=== PATIENT | female | born 1950 | race Caucasian/White ===

== ENCOUNTER 2020-08-19 15:01 | Outpatient (REF) | payer MEDICARE, SELFPAY ==
--- NOTE | ~2020-08-19 | MM_ITS ---
EXAMINATION: MM SCREENING DIGITAL BREAST TOMOSYNTHESIS, BILATERAL CLINICAL INFORMATION: Screening. Asymptomatic. Bilateral breast reduction surgery 2004. Right stereotactic biopsy 2007 (benign breast tissue with areas of chronic inflammation, foreign body giant cell reaction, hemosiderin deposition, scar and dystrophic microcalcifications). No clip placed. The lifetime risk of breast cancer based on the Tyrer-Cuzick Model is 3%. COMPARISON: Mammography: 07/25/2019, 07/19/2018, 06/21/2017 TECHNIQUE: Digital breast tomosynthesis is performed in both the craniocaudal and mediolateral oblique views along with computer-aided detection (CAD). Synthesized 2D images are generated from the tomosynthesis. FINDINGS: The breasts are almost entirely fatty (ACR BI-RADS breast composition Category a). Background stromal and fibroglandular densities are stable. There is minor scarring and scattered superficial benign calcifications consistent with the remote reduction mammoplasty. Parenchymal pattern is similar to prior studies. There is no developing density or interval mass or architectural abnormality or abnormal calcifications. The axilla are unremarkable. MM/MM tomosynthesis screening BI IMPRESSION: No mammographic evidence of malignancy. ASSESSMENT: BI-RADS 2: Benign RECOMMENDATION: Routine annual mammography screening. This patient's information was entered into a reminder system with a target due date for their next mammogram.
== END 2020-08-19 15:02 | disposition home or self-care (01) ==
LOC: HO.MAMMO 15:01
PROVIDERS: Visit Provider Internal Medicine
DX: Z12.31 Encounter for screening mammogram for malignant neoplasm of breast (principal)
CPT/HCPCS: 77063; 77067

== ENCOUNTER 2021-01-10 09:35 | Day surgery (SDC) | payer MEDICARE, SELFPAY ==
--- NOTE | 2021-01-09 12:29 | P.CONAN_ITS ---
Documented by User: Yazmin Dutta NP 01/09/21 12:29 HPI - Anesthesia Eval Consult details Narrative: 70yo F for Colonoscopy [facility] Past Medical History Medical History Insomnia Neuropathy Osteopenia Vitamin D deficiency Surgical History Surgical History History of ankle surgery History of bladder suspension procedure History of breast mammoplasty History of section History of cholecystectomy Hx of appendectomy Hx of colonoscopy Hx of foot surgery Hx of gastric bypass Hx of tonsillectomy Status post panniculectomy Social History Social History (Updated 01/10/21 @ 11:08 by Mulu Pedroza MD) Patient Tobacco Use Status: Current everyday Tobacco user Tobacco use type: Cigarette Cigarettes Per Day: 5 Smoked in Last 30 Days: Yes Use of substances other than those prescribed or required for medical reasons: No Are you DNR?: Yes Advance Directives: No Advance Directives Information Provided: Yes Meds Allergies Allergy/AdvReac Type Severity Reaction Status Date / Time No Known Allergies Allergy Mild NOT Verified 01/10/21 10:27 APPLICABLE Home Medications Medication Instructions Recorded Confirmed Last Taken Type Centrum 01/09/21 01/09/21 Unknown History Vitamin D3 01/09/21 Unknown History duloxetine 60 mg capsule,delayed 1 cap PO DAILY 01/09/21 01/09/21 Unknown History release ibuprofen 800 mg tablet 1 tab PO TID 01/09/21 01/09/21 Unknown History vit C,E,zinc,copper-mcunl5a 250 cap PO 01/09/21 Unknown History mg-lutein 5 mg-zeaxanthin 1 mg capsule (Ocuvite Adult 50 Plus) Exam Exam Date and Time: January 09, 2021 122 Assessment and Plan Assessment Anesthesia Assessment: Chart Reviewed Documented by User: Mulu Pedroza MD 01/10/21 11:11 [facility] Past Medical History Medical History Insomnia Neuropathy Osteopenia Vitamin D deficiency Family History Family history of problems with anesthesia: No Surgical History Surgical History History of ankle surgery History of bladder suspension procedure History of breast mammoplasty History of section History of cholecystectomy Hx of appendectomy Hx of colonoscopy Hx of foot surgery Hx of gastric bypass Hx of tonsillectomy Status post panniculectomy History of Problems with Anesthesia: No Social History Social History (Updated 01/10/21 @ 11:08 by Mulu Pedroza MD) Patient Tobacco Use Status: Current everyday Tobacco user Tobacco use type: Cigarette Cigarettes Per Day: 5 Smoked in Last 30 Days: Yes Use of substances other than those prescribed or required for medical reasons: No Are you DNR?: Yes Advance Directives: No Advance Directives Information Provided: Yes Meds Allergies Allergy/AdvReac Type Severity Reaction Status Date / Time No Known Allergies Allergy Mild NOT Verified 01/10/21 10:27 APPLICABLE Home Medications Medication Instructions Recorded Confirmed Last Taken Type Centrum 01/09/21 01/09/21 Unknown History Vitamin D3 01/09/21 Unknown History duloxetine 60 mg capsule,delayed 1 cap PO DAILY 01/09/21 01/09/21 Unknown History release ibuprofen 800 mg tablet 1 tab PO TID 01/09/21 01/09/21 Unknown History vit C,E,zinc,copper-fcvvv6h 250 cap PO 01/09/21 Unknown History mg-lutein 5 mg-zeaxanthin 1 mg capsule (Ocuvite Adult 50 Plus) Exam Height,Weight and Vital Signs: Height 5 ft 9 in Weight 101.151 kg Vital Signs Temp Pulse Resp BP Pulse Ox 01/10/21 10:46 97.3 F 85 20 140/97 H 97 Airway Mallampati Class: I TM Dist: >3cm Neck ROM: Full Denture: Upper and Lower Heart: RRR Lungs: CTAB Assessment and Plan Assessment Anesthesia Assessment: Anesthesia Plan Discussed Final Anesthetic Review Family History of Problems with Anesthesia: No History of Problems with Anesthesia: No NPO: Yes ASA Class: II Final Preanesthetic Review: No Changes in Pt Med Stat, Meds/Allgs Chart Reviewed, Consent Obtained/Reviewed and Anes Risks/Benef Reviewed Patient Risk: Low Procedure Risk: Low Assessment/Block/Sedation in SS: Assess/Block/Sedation-SS Anesthetic Plan Anesthetic Plan: MAC: Disposition: Standard PACU
[2021-01-09 12:31] VITALS: BMI 32.9
[2021-01-10 10:46] VITALS: BP 140/97; PULSE 85; RESP 20; TEMP 36.3; O2SAT 97
[2021-01-10] MEDS: Lactated Ringers 1,000 ML 100 ML IVCONT (10:59)
--- NOTE | 2021-01-10 11:15 | MHC.SHP ---
Pre-Procedural Eval Section A Date of Service: 01/10/21 The patient is an INPATIENT: No Changes since office visit: Yes Cold of Flu in the past 2 weeks, Yes New Medical Problems, Yes Changes in Medication and Yes Patient answered all questions The History & Physical has been completed within 30 days and I have reviewed it.: Yes Section B Chief Complaint: screening Allergies: Allergies Allergy/AdvReac Type Severity Reaction Status Date / Time No Known Allergies Allergy Mild NOT Verified 01/10/21 10:27 APPLICABLE Plan I have reviewed the history and physical and performed a pertinent physical examination on my patient. No changes have occurred unless specified.
--- NOTE | 2021-01-10 11:58 | P.BOP_ITS ---
Brief Operative Note Date of Service: 01/10/21 Pre-op diagnosis: screening Procedure: colonoscopy Surgeon: Arun Pena Anesthesia: MAC Was an Fire Lookout used for this Procedure?: No Estimated blood loss (mL): 0 Pathology: none sent Condition: stable Disposition: PACU
[2021-01-10 11:59] VITALS: BP 113/71; PULSE 75; RESP 16; TEMP 36.1; O2SAT 97
[2021-01-10 12:14] VITALS: BP 131/92; PULSE 70; RESP 16; TEMP 36.1; O2SAT 97
--- NOTE | 2021-01-10 12:36 | OP_ITS ---
SURGEON: Arun Pena MD INDICATIONS: Colon cancer screening. PREOPERATIVE DIAGNOSIS: POSTOPERATIVE DIAGNOSIS: PROCEDURE PERFORMED: Colonoscopy to the terminal ileum. ESTIMATED BLOOD LOSS: COMPLICATIONS: ANESTHESIA: Monitored anesthesia care. ASSISTANTS: SPECIMENS: DESCRIPTION OF PROCEDURE: History and physical performed. The risks and benefits of the procedure were explained to the patient. Informed consent was obtained. The patient was placed in the left lateral decubitus position. A digital rectal exam was performed and was found to be normal. The Olympus pediatric video colonoscope was introduced into the rectum and advanced to the cecum without difficulty. The cecum was identified by transillumination, palpation, and identification of ileocecal valve. Examination was performed. The scope was removed. She tolerated the procedure well and was taken to recovery room in stable condition. FINDINGS: The terminal ileum was normal. The visualized colonic mucosa was normal. The quality of the prep was good. There was some mucousy stool that was suctioned and did limit the examination slightly for detection of small polyps. No polyps were identified. Retroflexed examination showed internal hemorrhoids. IMPRESSION: Negative screening colonoscopy. RECOMMENDATIONS: 1. Follow up as needed. 2. Repeat colonoscopy would be recommended in 10 years for average risk individuals. This is optional based on her age. MD LACEY Gutierrez/GREG / [id number] MTDD
== END 2021-01-10 12:47 | disposition home or self-care (01) ==
PROVIDERS: PCP Internal Medicine; Visit Provider Internal Medicine Gastroenterology
PROC: 0DJD8ZZ Inspection of Lower Intestinal Tract, Via Natural or Artificial Opening Endoscopic (ICD-10-PCS; CPT 45378; principal; 2021-01-10 11:10)
DX: Z12.11 Encounter for screening for malignant neoplasm of colon (principal); Z86.010 Personal history of colon polyps; K64.8 Other hemorrhoids; K59.01 Slow transit constipation; G62.9 Polyneuropathy, unspecified; E55.9 Vitamin D deficiency, unspecified; G47.00 Insomnia, unspecified; M85.80 Other specified disorders of bone density and structure, unspecified site; Z90.49 Acquired absence of other specified parts of digestive tract; Z98.84 Bariatric surgery status; Z79.1 Long term (current) use of non-steroidal anti-inflammatories (NSAID); Z79.899 Other long term (current) drug therapy; F17.210 Nicotine dependence, cigarettes, uncomplicated
CPT/HCPCS: G0105

== ENCOUNTER 2021-09-05 11:31 | Outpatient (REF) | payer MEDICARE, SELFPAY ==
--- NOTE | ~2021-09-05 | MM_ITS ---
EXAMINATION: MM SCREENING DIGITAL BREAST TOMOSYNTHESIS, BILATERAL CLINICAL INFORMATION: Screening. Asymptomatic. Prior history reduction mammoplasty, 2005. History benign right breast stereotactic biopsy lower inner quadrant 11/09/2007 (no clip placed). The lifetime risk of breast cancer based on the Tyrer-Cuzick Model is 3%. COMPARISON: Mammography: 08/19/2020, 07/25/2019, 07/19/2018 TECHNIQUE: Digital breast tomosynthesis is performed in both the craniocaudal and mediolateral oblique views along with computer-aided detection (CAD). Synthesized 2D images are generated from the tomosynthesis. FINDINGS: The breasts are almost entirely fatty (ACR BI-RADS breast composition Category a). There are no significant masses, abnormal calcifications, or other abnormalities. Background stromal markings are normal. The axilla and skin contours are unremarkable. No significant changes. MM/MM tomosynthesis screening BI IMPRESSION: No mammographic evidence of malignancy. ASSESSMENT: BI-RADS 1: Negative RECOMMENDATION: Routine annual mammography screening. This patient's information was entered into a reminder system with a target due date for their next mammogram.
== END 2021-09-05 11:32 | disposition home or self-care (01) ==
LOC: HO.MAMMO 11:31
PROVIDERS: PCP Internal Medicine; Visit Provider Internal Medicine
DX: Z12.31 Encounter for screening mammogram for malignant neoplasm of breast (principal)
CPT/HCPCS: 77063; 77067

== ENCOUNTER 2022-09-17 10:57 | Outpatient (REF) | payer MEDICARE, SELFPAY ==
--- NOTE | ~2022-09-17 | MM_ITS ---
EXAMINATION: MM SCREENING DIGITAL BREAST TOMOSYNTHESIS, BILATERAL CLINICAL INFORMATION: Screening. Asymptomatic. The patient has a history of prior bilateral breast reduction. COMPARISON: Mammography: This study is compared with prior exams dating back to 2018. TECHNIQUE: Digital breast tomosynthesis is performed in both the craniocaudal and mediolateral oblique views along with computer-aided detection (CAD). Synthesized 2D images are generated from the tomosynthesis. FINDINGS: The breasts are almost entirely fatty (ACR BI-RADS breast composition Category a). There are no significant masses, abnormal calcifications, or other abnormalities. Post reduction changes are present in each breast. MM/MM tomosynthesis screening BI IMPRESSION: No mammographic evidence of malignancy. ASSESSMENT: BI-RADS BI-RADS 2 - Benign Findings RECOMMENDATION: Routine annual mammography screening. 1 year F/U This examination should not preclude the clinical evaluation of a suspicious palpable abnormality. This patient's information was entered into a reminder system with a target due date for their next mammogram.
== END 2022-09-17 10:58 | disposition home or self-care (01) ==
LOC: HO.MAMMO 10:57
PROVIDERS: PCP Nurse Practitioner Family; Visit Provider Family Medicine
DX: Z12.31 Encounter for screening mammogram for malignant neoplasm of breast (principal)
CPT/HCPCS: 77063; 77067

== ENCOUNTER → 2022-09-17 11:15 | Outpatient (BNV) | payer MEDICARE, SELFPAY | PROVIDERS: PCP Nurse Practitioner Family; Visit Provider Radiology Diagnostic Radiology | DX: Z12.31 Encounter for screening mammogram for malignant neoplasm of breast (principal) | CPT/HCPCS: 77063; 77067 ==

== ENCOUNTER 2023-09-23 11:11 | Outpatient (REF) | payer MEDICARE, SELFPAY ==
--- NOTE | ~2023-09-23 | MM_ITS ---
EXAMINATION: MM SCREENING DIGITAL BREAST TOMOSYNTHESIS, BILATERAL CLINICAL INFORMATION: Screening. Asymptomatic. Patient is status post bilateral breast reduction. COMPARISON: Mammography: This study is compared with prior exams dating back to 2020. TECHNIQUE: Digital breast tomosynthesis is performed in both the craniocaudal and mediolateral oblique views along with computer-aided detection (CAD). Synthesized 2D images are generated from the tomosynthesis. FINDINGS: The breasts are almost entirely fatty (ACR BI-RADS breast composition Category a). There are no significant masses, abnormal calcifications, or other abnormalities. Postreduction changes are present in each breast. MM/MM tomosynthesis screening BI IMPRESSION: No mammographic evidence of malignancy. ASSESSMENT: BI-RADS BI-RADS 2 - Benign Findings RECOMMENDATION: Routine annual mammography screening. 1 year F/U This examination should not preclude the clinical evaluation of a suspicious palpable abnormality. This patient's information was entered into a reminder system with a target due date for their next mammogram. Electronically signed by: Farida León MD 10/08/2023 12:11 PM EDT
== END 2023-09-23 11:12 | disposition home or self-care (01) ==
LOC: HO.MAMMO 11:11
PROVIDERS: PCP Nurse Practitioner Family; Visit Provider Nurse Practitioner Family
DX: Z12.31 Encounter for screening mammogram for malignant neoplasm of breast (principal)
CPT/HCPCS: 77063; 77067

== ENCOUNTER → 2023-09-23 11:30 | Outpatient (BNV) | payer MEDICARE, SELFPAY | PROVIDERS: PCP Nurse Practitioner Family; Visit Provider Radiology Diagnostic Radiology | DX: Z12.31 Encounter for screening mammogram for malignant neoplasm of breast (principal) | CPT/HCPCS: 77063; 77067 ==

== ENCOUNTER 2024-09-28 10:22 | Outpatient (REF) | payer MEDICARE, SELFPAY ==
--- OUTSIDE RECORDS SUMMARY | 2024-09-28 11:52 | XMS_ITS | Patient Health Record ---
Author Organization [facility] Address [address] [place] [id number] Care Team Providers Care Shank Breaker Name Role Phone Roxy (RETIRED) Kenyon FLORES Primary Care Prov ider Unavailable Arun Pena Jr Unavailable [phone] Allergies Allergen (clinical drug ingredient) Drug/Non Drug Allergy documented on EMR Reaction Allergy Type Onset Date Status environmental allerg ies (uncoded) Unknown Allergy Active Reason For Referral No Information Medications Medication SIG (Take, Route, Frequency, Duration) Notes Start Date End Date Status MiraLax (colon prep) 17 GM/SCOOP mixed with Gatorade or Crystal Light Orally begin at 5:00 p.m. the day before the procedure for 1 day 12/30/2020 Active Vitamin D Active Ocuvite Adult 50+ - as directed Orally Active Centrum Adults - as directed Orally Active Ibuprofen 800 MG 1 tablet with food o r milk as needed Orally Three times a day Active DULoxetine HCl 60 MG 1 capsule Orally On ce a day for 30 day(s) Active Immunizations Vaccine Route Administration Date Status Comme nts Influenza Unknown 12/10/2020 Administered Social History Tobacco Use: Social History Observation Description Date Details (start date - stop date) Current Smoker NA - NA Tobacco Use/Smoking Question Answer Notes Patient is a current smoker How often do you smoke cigarettes? every day How many cigarettes a day do you smoke? 5 or les s How soon after you wake up d o you smoke your first cigarette? after 60 minutes Are you interested in quitting? Thinking about q uitting Problems Problem Type SNOMED Code ICD Code Onset Dates Problem Status W/U Status Risk Notes Problem 810584561 Colon cancer screening (Z12.11) Active confirmed Problem 47075194 Slow transit constipation (K59.01) Active confirmed Plan Of Treatment Future Test Test Name Order Date COLONOSCOPY 05/25/2014 COLONOSCOPY 12/30/2020 Insurance Providers Payer Name Payer Address Payer Phone Subscriber Number Group Number Insured Name Patient Relationship to Insured Coverage Start Date Coverage End Date [facility] [address] [place] [phone] [id number] KIMMY GASPAR Self - patient is the insured Medical (General) History Medical History History ICD Code colonoscopy 09/22, tubular adenoma, five- year followup Neuropathy insomnia Vitamin D deficiency Osteopenia Surgical History Surgery Date(Month/Year) gastric bypass with 120 lb weight loss appendectomy tonsillectomy foot surgery ankle surgery mammoplasty panniculectomy cholecystectomy bladder suspension section
--- OUTSIDE RECORDS SUMMARY | 2024-09-28 11:52 | XMS_ITS | Clinical Summary ---
Author Organization [facility] it Address [address] [place] [address] Care Team Providers Care Rubber Roller Grinder Name Role Phone Unavailable Primary Care Provider Unavailabl e Social History Tobacco Use Types Packs/Day Years Used Date Smoking Tobacco: Never Assessed Comments Unknown Sex and Gender Information Value Date Recorded Sex Assigned at Not on file Legal Sex Female 8:31 PM EST Gender Identity Not on file Sexual Orientation Not on file Plan of Treatment Health Maintenance Due Date Last Done Comments Breast Cancer Screening 1950 DTaP,Tdap,and Td Vaccines (1 - Tdap) 1969 Pneumococcal Vaccine: 50+ Ye ars (1 of 1 - PCV) 2000 Zoster Vaccines (1 of 2) 2000 Colorectal Cancer Screening: Colonoscopy 01/10/2022 Falls Risk Assessment 01/10/2022 Hepatitis C Screening 01/10/2022 Osteoporosis Screening (Bone Density Screening) 01/10/2022 Social Influencers of Health Screening 01/10/2022 COVID-19 Vaccine ( - 2023-2 5 season) 2023 Depression Screening 02/09/2024 Influenza Vaccine (#1) 2024 RSV Immunization Adult Patie nts (1 - 1-dose 75+ series) 2025 HIB Vaccines Aged Out No longer eligi ble based on patient's age to complete this topic HPV Vaccines Aged Out No longer eligi ble based on patient's age to complete this topic Hepatitis A Vaccines Aged Out No long er eligible based on patient's age to complete this topic Hepatitis B Vaccines Aged Out No long er eligible based on patient's age to complete this topic IPV Vaccines Aged Out No longer eligi ble based on patient's age to complete this topic MMR Vaccines Aged Out No longer eligi ble based on patient's age to complete this topic Meningococcal ACWY Vaccine Aged Out N o longer eligible based on patient's age to complete this topic Meningococcal B Vaccine Aged Out No l onger eligible based on patient's age to complete this topic RSV Immunization Patients Un kirit 20 months Aged Out No longer eligible b ased on patient's age to complete this topic Varicella Vaccines Aged Out No longer eligible based on patient's age to complete this topic
--- OUTSIDE RECORDS SUMMARY | 2024-09-28 11:52 | XMS_ITS | Patient Health Record ---
[facility] Address [address] [place] [address] Care Team Providers Care Fluid Pump Operator Name Role Phone Carlitos NGUYEN, Cathy Primary Care Provider Unavail able Siddharth Perdomo Unavailable [phone] Allergies Allergen (clinical drug ingredient) Drug/Non Drug Allergy documented on EMR Reaction Allergy Type Onset Date Status Grass Mix Pollens Allergen Ext Unknown Drug Allergy Active Eggs or Egg-derived Products Unknown Drug Allergy Active Reason For Referral No Information Medications Medication SIG (Take, Route, Frequency, Duration) Notes Start Date End Date Status Sulfamethoxazole-TMP DS Not-Taking Vitamin D Active Ocuvite Active Centrum Silver Activ e Ibuprofen 800 MG 1 tablet with food o r milk as needed Orally every 8 hrs Active DULoxetine HCl 60 MG 1 capsule Orally On ce a day; Duration: 30 day(s) Active Social History Tobacco Use: Social History Observation Description Date Details (start date - stop date) Current Smoker NA - NA Tobacco Use/Smoking Question Answer Notes Are you a: current smoker Alcohol Screen Question Answer Notes Did you have a drink containing alcohol in the p ast year? No Points 0 Interpretation Negative Tobacco use other than smoking: Question Answer Notes Are you an other tobacco user? No Plan Of Treatment Pending Test Test Name Order Date X ray : Foot, left 3V 03/31/2023 Insurance Providers Payer Name Payer Address Payer Phone Subscriber Number Group Number Insured Name Patient Relationship to Insured Coverage Start Date Coverage End Date [employer] [place] [employer] [address] [place] [id number] [place], Sharri Self - patient is the insured Medical (General) History Medical History History ICD Code Anxiety asthma Cataracts Gall bladder problems Macular degeneration Neuropathy Surgical History Surgery Date(Month/Year) gall bladder gastric bypass tonsillectomy hysterectomy foot surgery appendectomy right foot surgery- ligament
== END 2024-09-28 10:23 | disposition home or self-care (01) ==
LOC: HO.MAMMO 10:22
PROVIDERS: PCP Nurse Practitioner Family; Visit Provider Nurse Practitioner Family
DX: Z12.31 Encounter for screening mammogram for malignant neoplasm of breast (principal)
CPT/HCPCS: 77063; 77067

== ENCOUNTER → 2024-09-28 10:45 | Outpatient (BNV) | payer MEDICARE, SELFPAY | PROVIDERS: PCP Nurse Practitioner Family; Visit Provider Internal Medicine | DX: Z12.31 Encounter for screening mammogram for malignant neoplasm of breast (principal) | CPT/HCPCS: 77063; 77067 ==